=== PATIENT | female | born 1975 | race Caucasian/White ===

== ENCOUNTER → 2017-03-01 | Outpatient (CLI) | payer BC ==
[~2017-03-01] MED LIST: ALBU8.5H5 IH; FLEC50TA2 PO; FLUT1DIS30 INH; LORA0.5T86 PO; ONDA4TAB4 PO
[2017-03-01 15:45] LABS: BLOOD, URINE NEGATIVE (NEGATIVE); COLOR,URINE YELLOW (YELLOW); LEUKOCYTE ESTERASE ,URINE NEGATIVE (NEGATIVE); NITRITE,URINE NEGATIVE (NEGATIVE); UROBILINOGEN,URINE 0.2 EU/DL (NORMAL)
--- NOTE | 2017-03-01 16:01 | DI ---
Indication: ITS.REASON: R10.9 LEFT FLANK PAIN PROCEDURE: KUB: Encounter: Initial Comparison: January 15, 2013 Findings: Surgical clips projecting over the right pelvis. The bowel gas pattern is nonobstructive and nonspecific. Gas is seen in nondilated small and large bowel to the level of the rectum. Moderate stool is seen throughout the colon. The bony structures are grossly unremarkable. No definite stones projecting over the kidneys or expected course of the ureters. Kidneys are largely obscured by overlying bowel gas and stool. Impression: Nonobstructive nonspecific bowel gas pattern. .
== END ==
LOC: IMA 15:03
PROVIDERS: ATTEND Physician Assistant Medical
DX: R10.12 Left upper quadrant pain (principal)
CPT/HCPCS: 81003

== ENCOUNTER → 2017-03-05 | Outpatient (CLI) | payer BC ==
[~2017-03-05] MED LIST changes: +IOHEXOL 300 MG/ML 100ml INJECTION ONE; +IOHEXOL 300 MG/ML 75ml INJECTION ONE; +NORMAL SALINE 100 ML ONE; +SALINE FLUSH 10ml SYRINGE ONE
--- NOTE | 2017-03-05 17:45 | DI ---
Indication: ITS.REASON: R10.9 PAIN IN LEFT FLANK PAIN PROCEDURE: CT RENAL W/WO CONTRAST: Encounter: Initial Comparison: None Technique: Axial CT images were performed through the abdomen and pelvis before and after the administration of intravenous contrast. Delayed postcontrast images were also performed. Coronal and sagittal 2-dimensional reformats. Automated Exposure Control and Iterative Reconstruction dose reducing techniques were utilized. Contrast: Omnipaque 300 67 mL Findings: The included portions of the lung bases are clear. Heart size normal. No pleural effusion. The liver enhances homogeneously. Gallbladder is thin-walled and nondistended with some dependent debris which could represent sludge or noncalcified gallstones. The pancreas is homogeneous in density and uniform in contour. The spleen demonstrates multiple hypodense foci. There is a centimeter rounded focus in the anterior tip of the spleen and more wedge-shaped low attenuation in the inferior medial aspect of the spleen which resembles a probable splenic infarct. Adrenal glands are normal. Kidneys enhance homogeneously and symmetrically. No definite nephrolithiasis or evidence for obstructing ureteral calculus. No hydronephrosis or perinephric collection. The abdominal aorta is nonaneurysmal. No retroperitoneal or mesenteric adenopathy. No definite bony destructive process. Pelvis: A normal appendix is not identified with certainty. There is no significant distal colonic diverticulosis or evidence for diverticulitis. No free fluid or pelvic sidewall adenopathy. The urinary bladder is not distended. No definite bony destructive process. 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 No definite nephrolithiasis or evidence for obstructing ureteral calculus. Probable cholelithiasis without evidence for cholecystitis. .
== END ==
LOC: IMA 14:24
PROVIDERS: ATTEND Physician Assistant Medical
DX: D73.9 Disease of spleen, unspecified (principal); R93.8 Abnormal findings on diagnostic imaging of other specified body structures; R10.12 Left upper quadrant pain

== ENCOUNTER → 2017-03-06 | Outpatient (CLI) | payer BC ==
[~2017-03-06] MED LIST changes: -IOHEXOL 300 MG/ML 100ml INJECTION ONE; -IOHEXOL 300 MG/ML 75ml INJECTION ONE; -NORMAL SALINE 100 ML ONE; -SALINE FLUSH 10ml SYRINGE ONE
== END ==
LOC: LAB 17:50
PROVIDERS: ATTEND Surgery
DX: R10.12 Left upper quadrant pain (principal); R11.0 Nausea; D73.5 Infarction of spleen
CPT/HCPCS: 36415; 85379

== ENCOUNTER → 2017-03-28 | Outpatient (CLI) | payer BC ==
[2017-03-28 14:09] LABS: HCT - HEMATOCRIT 39.5 % (36-46); HGB - HEMOGLOBIN 13.8 GM/DL (12-16); MEAN CORPUSCULAR HGB 31.2 UUG (26-34); MEAN CORPUSCULAR HGB CONC(MCHC 34.9 GM/DL (31-37); MEAN CORPUSCULAR VOLUME 89.4 UM3 (80-100); MEAN PLATELET VOLUME 10.2 UM3 (9.4-12.4); RED BLOOD COUNT 4.42 M/MM3 (4.00-5.20); WBC - WHITE BLOOD COUNT 7.9 T/MM3 (4.5-11.0)
[2017-03-28 14:13] LABS: INR 1.11 (0.77-1.03); PROTHROMBIN TIME 12.2 SEC (9.48-12.52)
[2017-03-28 14:14] LABS: PTT 29.7 SEC (24-36)
[2017-03-28 14:37] LABS: EOSINOPHILS # (MANUAL) 0.3 T/MM3 (0-0.5); LYMPHOCYTES # (MANUAL) 2.1 T/MM3 (1-4.8); MONOCYTES # (MANUAL) 0.7 T/MM3 (0-0.8); NEUTROPHILS #(MANUAL)-ABSOLUTE 4.8 T/MM3 (1.8-7.7); TOTAL CELLS COUNTED 100 %
== END ==
LOC: LAB 13:31
PROVIDERS: ATTEND Internal Medicine Hematology & Oncology
DX: Z79.01 Long term (current) use of anticoagulants (principal)
CPT/HCPCS: 36415; 85007; 85027; 85610; 85730